=== PATIENT | female | born 1980 | race Caucasian/White ===

== ENCOUNTER 2025-04-25 05:48 | Emergency (ER) | payer OTHER ==
[2025-04-25 05:54] VITALS: BMI 30.9
[2025-04-25] MEDS ORDERED: ACETAMINOPHEN 325 MG TABLET (FP) ONE (07:37)
[2025-04-25] MEDS: ACETAMINOPHEN 325 MG TABLET (FP) PO ONE (07:40)
[2025-04-25] MEDS: SODIUM CHLORIDE 0.9% 500 ML INFUS.BAG IV ONE (07:49)
[2025-04-25] MEDS: ACETAMINOPHEN 1000 MG/100 ML BAG IVPB ONE (07:50)
[2025-04-25 08:27] LABS: EPI CELLS 31 /uL (0-25.1); HYALINE CASTS 10 /uL (0-3.1); URINE APPEARANCE TURBID; URINE BACTERIA 3935 /uL (0-1359); URINE BILIRUBIN 2+ (NEGATIVE); URINE COLOR RED; URINE GLUCOSE (UA) NEGATIVE (NEGATIVE); URINE KETONE Error (NEGATIVE); URINE LEUK ESTERASE 3+ (NEGATIVE); URINE NITRITE POSITIVE (NEGATIVE); URINE PROTEIN 2+ (NEGATIVE); URINE WBC 5289 /uL (0-25.8)
[2025-04-25 08:56] VITALS: BP 105/63; PULSE 63; RESP 19; TEMP 99
[2025-04-25 09:25] LABS: URINE CRYSTALS NO SEEN /hpf; YEAST NO SEEN (NEGATIVE)
[2025-04-25] MEDS ORDERED: CEPHALEXIN MONOHYDRATE 500 MG CAPSULE (UD) ONE (09:35)
[2025-04-25] MEDS: CEPHALEXIN MONOHYDRATE 500 MG CAPSULE (UD) PO ONE (09:44)
== END 2025-04-25 09:54 | disposition home or self-care (01) ==
LOC: JER 05:48
DX: N30.01 Acute cystitis with hematuria (principal); R10.30 Lower abdominal pain, unspecified; R30.0 Dysuria; R35.0 Frequency of micturition; R39.15 Urgency of urination
CPT/HCPCS: 81003; 84703; 87086; 99283-25